=== PATIENT | male | born 1995 | race Caucasian/White ===

== ENCOUNTER 2019-11-21 22:18 | Emergency (ER) | payer OTHER, MEDICAID ==
[~2019-11-21] VITALS: Ht 172.7 cm; Wt 90.0 kg
--- OUTSIDE RECORDS SUMMARY | 2019-11-21 22:24 | XMS REPORT | Continuity of Care Document ---
Author Organization Unknown Address Unknown Phone Unavailable Allergies There is no data. Medications There is no data. Problems There is no data. Procedures There is no data. Results There is no data. Encounters ACCT No. Visit Date/Time Discharge Status Pt. Type Provider Facility Loc./Unit Complaint [id number] 08/07/2019 15:40:00 08/07/2019 23:59: 59 [facility] [id number] 11/21/2019 22:20:[address] Emergency MADELINE VICENTE, DEV Narvaez [facility] ER FS FINGER LACERATION
[2019-11-21 22:29] VITALS: BP 130/68
[2019-11-21] MEDS ORDERED: TETANUS & DIPHTHERIA TOX,ADULT 0.5 ML (TENIVAC) IM ONE (22:30)
[2019-11-21] MEDS ORDERED: CEPHALEXIN 250 MG (KEFLEX) CAP PO ONE (22:30)
[2019-11-21] MEDS ORDERED: CEPH-507 PO (22:33)
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
== END 2019-11-21 22:44 | disposition home or self-care (01) ==
LOC: ER FS 22:20
DX: S61.032A Puncture wound without foreign body of left thumb without damage to nail, initial encounter (principal); Z23 Encounter for immunization; W29.8XXA Contact with other powered hand tools and household machinery, initial encounter
CPT/HCPCS: 90714

== ENCOUNTER 2020-09-28 15:07 | Emergency (ER) | payer MEDICAID, OTHER ==
[~2020-09-28] VITALS: Ht 175.2 cm; Wt 89.5 kg
[~2020-09-28 15:07] MED LIST: CEPH-507 PO
[2020-09-28] MEDS ORDERED: LIDOCAINE 1% INJ 20 ML 20 ML VIAL ONE (15:17)
[2020-09-28] MEDS ORDERED: CEPH500T PO (15:35)
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
[2020-09-28 15:44] VITALS: BP 152/85
== END 2020-09-28 15:44 | disposition home or self-care (01) ==
LOC: EDUNIT# 15:07 → ER FS 15:09
DX: S61.042A Puncture wound with foreign body of left thumb without damage to nail, initial encounter (principal); W45.8XXA Other foreign body or object entering through skin, initial encounter

== ENCOUNTER 2020-11-14 17:16 | Emergency (ER) | payer OTHER, MEDICAID ==
[~2020-11-14] VITALS: Ht 175.2 cm; Wt 88.4 kg
[~2020-11-14 17:16] MED LIST changes: +CEPH500T PO
[2020-11-14 17:20] VITALS: BP 143/93
[2020-11-14] MEDS ORDERED: LIDOCAINE 1% INJ 20 ML 20 ML VIAL ONE (17:37)
[2020-11-14] MEDS ORDERED: LIDOCAINE 1% INJ 20 ML 20 ML VIAL INJ ONE (17:45)
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
[2020-11-14] MEDS ORDERED: CEPH500T PO (18:16)
== END 2020-11-14 18:20 | disposition home or self-care (01) ==
LOC: EDUNIT# 17:16 → ER 17:20
DX: S90.31XA Contusion of right foot, initial encounter (principal); F17.210 Nicotine dependence, cigarettes, uncomplicated; F17.290 Nicotine dependence, other tobacco product, uncomplicated; W20.8XXA Other cause of strike by thrown, projected or falling object, initial encounter
CPT/HCPCS: 99283